=== PATIENT | female | born 1980 | race Hispanic/Latino ===

== ENCOUNTER 2017-09-21 23:36 | Inpatient (IN) | payer OTHER ==
[2017-09-22 00:18] VITALS: BMI 26.4
[2017-09-22 00:38] LABS: BASO # 0.2 K/uL (0.0-0.2); BASO % 1.4 % (0.0-2.0); EOS # 0.1 K/uL (0.0-0.7); EOS % 0.8 % (0.0-4.0); HEMOGLOBIN 11.8 g/dL (12.0-16.0); LYMPH # 2.4 K/uL (1.0-4.3); LYMPH % 14.6 % (20.0-40.0); MEAN CELL VOLUME 92.2 fl (81.0-99.0); MEAN CORPUSCULAR HEMOGLOBIN 30.6 pg (27.0-31.0); MEAN CORPUSCULAR HGB CONC 33.2 g/dL (33.0-37.0); MEAN PLATELET VOLUME 9.9 fl (7.2-11.7); MONO # 0.8 K/uL (0.0-0.8); MONO % 4.6 % (0.0-10.0); NEUT # 12.9 K/uL (1.8-7.0); NEUT % 78.6 % (50.0-75.0); RBC 3.87 Mil/uL (3.80-5.20); RED CELL DISTRIBUTION WIDTH 13.7 % (11.5-14.5); WHITE BLOOD COUNT 16.4 K/uL (4.8-10.8)
[2017-09-22] MEDS ORDERED: fentaNYL 250 MCG, Bupivacaine HCl 0.5% 31.25 ML in Sodium Chloride 0.9% 88.75 ML EPI ONE (00:46)
[2017-09-22] MEDS ORDERED: Oxytocin 30 units/LR 500ML 30 U/500 ML BAG IV ONE (00:55)
[2017-09-22] MEDS: Lactated Ringer's 1,000 ML IV SCH ×5 (00:55→09:50)
[2017-09-22] MEDS ORDERED: Bupivacaine HCl 0.25% PF (10 ml) Inj ONE (01:17)
--- NOTE | 2017-09-22 06:13 | OBADHP ---
Datetime: 09/22/2017 00:17 Admit Comment, IP Provider: 37 yo at 39.1 weeks GA, ANGIE 09/28/17 based on LMP on 12/22/16 pres ents to SHORTY w/ c/o CTX every 5 minutes for last few hours. Pt went to see Dr. Parra today and mai seymour membrane sweeping. Denies VB, LOF. Reports +FM. Pt is GBS negative. PNC: [facility], Dr. Parra PNL: hiv neg, rpr neg, gbs neg, rubella immune, hpsag neg Pobhx: x 1, fullterm, no complication, D_C x 1 pmhx: GERD pshx: knee surgery social hx:denies smoking cigarettes, drinking EtOH or using drugs family: Denies CAD, HTN in parents Medications: PNV, nexium prn allergies: Percocet: vomiting ( SE) Assessment: 37 yo IUP @39.1 weeks GA presents for uterine contraction. Plan: Admit to L_D Initiate labor protocol Continuous fetus heart tracing labs: cbc, type and screen, rpr IVFs GBS negative Pain management: pt desires epidural [place], PYG-1 Case d/w on-call OB-Hospitalist Dr. Rojo OB Hospitalist on-call. with PGY1, I saw ans examined this patient...Ealry labor, AMA - will admt i and observe labor progress...discussed labor, pain management delivery and Pelvic Type - PN: Adequate Extremities - PN: Normal Abdomen - PN: Normal Back - PN: Normal Lungs - PN: Normal Heart - PN: Normal Neurologic - PN: Normal HEENT - PN: Normal General - PN: Normal FHR - Baseline A Provider: 150S Membranes, Provider: Intact Comments, ACOG Physical Exam: SVE: /-2 Pool Provider: Negative IP Hx Assessment: The History has been Reviewed and is Current Vital Signs Provider: Reviewed IP Chief Complaint: Uterine contractions NICHD Variability Prov Fetus A: Moderate 6-25bpm NICHD Accel Fetus A IP Provider: [id number] FHR Category Provider Fetus A: Category I NICHD Decel Fetus A IP Provider: None Dilatation, Provider: 4-5 Effacement, Provider: 80 Station, Provider: -2 Genitourinary Exam: Normal DTRs - PN: Normal EGA AdmitDate IP: 39.0 IP Adm Impression: Term, intrauterine ; No Active Labor; Intact Membranes IP Admit Plan: Admit to unit; Initiate labor protocol
[2017-09-23 07:16] LABS: HEMOGLOBIN 9.7 g/dL (12.0-16.0); MEAN CELL VOLUME 92.8 fl (81.0-99.0); MEAN CORPUSCULAR HEMOGLOBIN 30.8 pg (27.0-31.0); MEAN CORPUSCULAR HGB CONC 33.2 g/dL (33.0-37.0); RBC 3.17 Mil/uL (3.80-5.20); RED CELL DISTRIBUTION WIDTH 13.9 % (11.5-14.5); WHITE BLOOD COUNT 13.8 K/uL (4.8-10.8)
--- NOTE | 2017-09-23 08:22 | OBPPN ---
Datetime: 09/23/2017 08:14 PP Pain Prov: Within normal limits PP Nausea Prov: Denies PP Abdomen/Uterus Prov: Normal PP Lochia Prov: Normal PP Progress Prov: Normal PP Impression Prov: Normal progression PP Plan Prov: Continue present management PP Progress Note Prov: PPD 1 s/p , doing well, breast feeding Continue current care Vital Signs Provider PP: Reviewed
[2017-09-24 16:51] VITALS: BP 127/76; PULSE 65; RESP 20; TEMP 97.5; O2SAT 99
== END 2017-09-24 12:15 | disposition home or self-care (01) | DRG 775 ==
LOC: H.EROB2 23:36 → H.L&D 09-22 00:23 → H.OB/GYN 09-22 08:55
PROVIDERS: ADMIT Obstetrics & Gynecology; ATTEND Obstetrics & Gynecology
PROC: 0HQ9XZZ Repair Perineum Skin, External Approach (ICD-10-PCS; principal; 2017-09-22)
PROC: 10E0XZZ Delivery of Products of Conception, External Approach (ICD-10-PCS; 2017-09-22)
PROC: 4A1HXCZ Monitoring of Products of Conception, Cardiac Rate, External Approach (ICD-10-PCS; 2017-09-22)
DX: O70.0 First degree perineal laceration during delivery (principal); K21.9 Gastro-esophageal reflux disease without esophagitis; Z37.0 Single live birth; O99.62 Diseases of the digestive system complicating childbirth; Z3A.39 39 weeks gestation of pregnancy